=== PATIENT | male | born 1960 | race Caucasian/White ===

== ENCOUNTER → 2016-07-01 | Outpatient (CLI) | payer MEDICAID, OTHER | END | disposition home or self-care (01) | LOC: Rad HDHVI 08:34 | PROVIDERS: ATTEND Internal Medicine Cardiovascular Disease | DX: R07.89 Other chest pain (principal) | CPT/HCPCS: 93306 ==

== ENCOUNTER → 2016-07-15 | Outpatient (CLI) | payer MEDICAID ==
[~2016-07-15] VITALS: Ht 172.7 cm; Wt 93.4 kg
== END | disposition home or self-care (01) ==
LOC: Rad HDHVI 13:24
PROVIDERS: ATTEND Internal Medicine Cardiovascular Disease
DX: I10 Essential (primary) hypertension (principal); E78.00 Pure hypercholesterolemia, unspecified; R11.0 Nausea; Z82.49 Family history of ischemic heart disease and other diseases of the circulatory system; G43.809 Other migraine, not intractable, without status migrainosus
CPT/HCPCS: 93017

== ENCOUNTER → 2016-08-30 | Outpatient (CLI) | payer MEDICAID ==
[~2016-08-30] VITALS: Ht 172.7 cm; Wt 95.3 kg
[~2016-08-30] MED LIST: ALPR0.5T7 PO; DIVA500T4 PO; FLUO40CA PO; LIDO5DIS21 TOP; LORA-622 PO; METO-169 PO; OXCA600T3 PO; PREG100C PO; QUET50TA PO
[2016-08-30 16:20] LABS: Basophils # (auto) 0 uL; Basophils % (auto) 0.6 % (0.0-2.0); Eosinophils # (auto) 0.5 uL; Eosinophils % (auto) 7.5 % (0.0-7.0); Hematocrit 41.4 % (41.0-53.0); Hemoglobin 13.8 g/dL (13.5-17.5); Lymphocytes # (auto) 2.2 uL; Lymphocytes % (auto) 33.8 % (10.0-50.0); Mean Corpuscular Hemoglobin 27.2 pg (28.0-32.0); Mean Corpuscular Hgb Conc. 33.2 g/dL (32.0-36.0); Mean Corpuscular Volume 81.9 fL (80.0-100.0); Mean Platelet Volume 8.7 fL (7.4-10.4); Monocytes # (auto) 0.6 uL; Neutrophils # (auto) 3.2 uL; Neutrophils % (auto) 49.1 % (37.0-80.0); Platelet Count (auto) 308 10^3/uL (140-450); Red Cell Distribution Width 15.4 % (11.6-16.0); White Blood Cell 6.5 10^3/uL (4.4-10.8)
[2016-08-30 16:27] LABS: BUN/Creatinine Ratio 9.7; Calcium 8.8 mg/dL (8.5-10.1); Potassium 4.2 mmol/L (3.5-5.1)
[2016-08-30 16:30] LABS: INR 0.99 (0.9-1.15); Partial Thromboplastin Time 27.3 sec (22.64-33.71); Prothrombin Time 10.2 sec (9.37-12.3)
== END | disposition home or self-care (01) ==
LOC: Rad HDHVI 11:00
PROVIDERS: ATTEND Internal Medicine Cardiovascular Disease
DX: I10 Essential (primary) hypertension (principal); D64.9 Anemia, unspecified; R79.1 Abnormal coagulation profile
CPT/HCPCS: 36415; 71020; 80048; 85025; 85610; 85730; 93005; G0463

== ENCOUNTER 2016-09-02 10:03 | Day surgery (SDC) | payer MEDICAID ==
[2016-09-02] MEDS ORDERED: LIDOCAINE 2%HCL (LOCAL ANESTH.) INJ 20ML MDV ONE (10:42)
[2016-09-02] MEDS ORDERED: IOHEXOL 350 MG/ML 100ML IJ ONE (10:42)
[2016-09-02] MEDS ORDERED: MIDAZOLAM HCL 1MG/1ML-2 ML VIAL ONE (10:48)
[2016-09-02] MEDS ORDERED: fentaNYL CITRATE 100 MCG/2 ML VL ONE (10:48)
[2016-09-02] MEDS ORDERED: ANGIOMAX 250 MG VIAL IV ONE (10:48)
[2016-09-02] MEDS ORDERED: SODIUM CHL 0.9% 0 ML ONE (10:49)
[2016-09-02] MEDS ORDERED: ACETAMINOPHEN 325 MG TAB PO ONE ×2 (11:58→12:15)
== END 2016-09-02 13:45 | disposition home or self-care (01) ==
LOC: CATH 10:03
PROVIDERS: ATTEND Internal Medicine Cardiovascular Disease
DX: R94.39 Abnormal result of other cardiovascular function study (principal); I10 Essential (primary) hypertension
CPT/HCPCS: 93458; C1760; C1894; J1644; J3010; J7030; Q9967; 99152; J2250

== ENCOUNTER 2021-09-25 12:53 | Inpatient (IN) | payer OTHER, MEDICAID ==
[~2021-09-25] VITALS: Ht 172.7 cm; Wt 89.0 kg
[~2021-09-25 12:53] MED LIST changes: -METO-169 PO; +METO-289 PO
[2021-09-25] MEDS ORDERED: SODIUM CHLORIDE 0.9% 1,000 ML IV ONE ×3 (13:15→18:30)
[2021-09-25 13:47] LABS: Basophils # (auto) 0 10 ^3/uL (0-0.2); Basophils % (auto) 0.1 % (0.0-2.0); Eosinophils # (auto) 0 10 ^3/uL (0-0.8); Hematocrit 41.3 % (41.0-53.0); Hemoglobin 14.3 g/dL (13.5-17.5); Lymphocytes # (auto) 1.5 10 ^3/uL (0.4-5.4); Lymphocytes % (auto) 6.6 % (10.0-50.0); Mean Corpuscular Hemoglobin 30.5 pg (28.0-32.0); Mean Corpuscular Hgb Conc. 34.6 g/dL (32.0-36.0); Mean Corpuscular Volume 88.1 fL (80.0-100.0); Monocytes # (auto) 1.7 10 ^3/uL (0-1.3); Monocytes % (auto) 7.3 % (0.0-12.0); Neutrophils # (auto) 19.7 10 ^3/uL (1.6-8.6); Red Blood Cells 4.69 10^6/uL (4.5-5.90); Red Cell Distribution Width 13.3 % (11.8-14.3); White Blood Cell 22.9 10^3/uL (4.4-10.8)
[2021-09-25 13:50] LABS: Albumin 3.5 g/dL (3.4-5.0); Calcium 8.8 mg/dL (8.5-10.1); Lactic Acid w/Reflex 3.9 mmol/L (0.4-2.0); Potassium 3.5 mmol/L (3.5-5.1)
[2021-09-25 13:52] LABS: BUN/Creatinine Ratio 8.8
[2021-09-25 13:57] LABS: Bilirubin, Total 1.7 mg/dL (0.2-1.0); Total Protein 7.9 g/dL (6.4-8.2)
[2021-09-25] MEDS ORDERED: cefTRIAXone 1GM/50ML D5W 50 ML IV ONE (16:30)
[2021-09-25] MEDS ORDERED: ONDANSETRON HCL 4 MG/2 ML VIAL IV PRN (17:15)
[2021-09-25] MEDS ORDERED: AZITHROMYCIN 500MG/ 250ML 250 ML IV ONE (17:30)
[2021-09-25] MEDS ORDERED: ALBUTEROL SULF 2.5 MG/0.5ML(0.5%) NEB SOLN ONE (18:45)
[2021-09-25] MEDS ORDERED: IPRATROPIUM BROM 0.5 MG/2.5ML INH SOL ONE (18:45)
[2021-09-25] MEDS: ALBUTEROL SULF 2.5 MG/0.5ML(0.5%) NEB SOLN NEB PRN (18:54)
[2021-09-25] MEDS: IPRATROPIUM BROM 0.5 MG/2.5ML INH SOL NEB PRN (18:54)
[2021-09-25 19:07] VITALS: BP 119/73
[2021-09-25 19:07] LABS: Cholesterol 118 mg/dL (< 200)
[2021-09-25 19:10] LABS: HDL Cholesterol 54 mg/dL (40-59); LDL Cholesterol 57 mg/dL (< 100); Triglycerides 55 mg/dL (< 150)
[2021-09-25 20:00] VITALS: BP 107/62
[2021-09-25] MEDS: MORPHINE SULFATE 4 MG/ML SYR/VIAL IV PRN (20:13)
[2021-09-25 20:29] LABS: INR 1.27 (0.9-1.15)
[2021-09-25 22:00] VITALS: BP 107/62
[2021-09-25] MEDS: HEPARIN SODIUM (PORCINE) 5000 UNITS/ML 1ML VIAL SC SCH (22:41)
[2021-09-25] MEDS: SODIUM CHLORIDE 0.9% 1,000 ML IV SCH (23:00)
[2021-09-25 23:54] LABS: Urine Bacteria NONE SEEN /hpf (None Seen); Urine Blood TRACE /uL (Negative); Urine Hyaline Cast FEW /lpf (0 - 2); Urine Specific Gravity 1.013 (1.001-1.035); Urine WBC 1 /hpf (0 - 3)
[2021-09-26 00:02] LABS: Amphetamine Screen, Urine NEGATIVE (NEGATIVE); Barbiturate Scree,Urine NEGATIVE (NEGATIVE); Benzodiazephine Screen, Urine NEGATIVE (NEGATIVE); Cannabinoid Screen, Urine NEGATIVE (NEGATIVE); Cocaine Screen, Urine NEGATIVE (NEGATIVE); Opiate Scree,Urine NEGATIVE (NEGATIVE); Phencyclidine Screen, Urine NEGATIVE (NEGATIVE)
[2021-09-26] MEDS: MAGNESIUM SULFATE 1GM/100ML 100 ML IV SCH ×2 (00:09→01:32)
[2021-09-26] MEDS: MORPHINE SULFATE 4 MG/ML SYR/VIAL IV PRN ×3 (00:30→18:15)
[2021-09-26] MEDS: SODIUM CHLORIDE 0.9% 1,000 ML IV SCH ×2 (03:15→15:09)
[2021-09-26 05:00] VITALS: BP 100/61
[2021-09-26] MEDS: ACETAMINOPHEN 325 MG TAB PO PRN ×2 (05:35→16:38)
[2021-09-26 09:00] VITALS: BP 113/68
[2021-09-26] MEDS: cefTRIAXone 1GM/50ML D5W 50 ML IV SCH (09:45)
[2021-09-26] MEDS: METOPROLOL SUCCINATE XL 50 MG TAB PO SCH (09:45)
[2021-09-26] MEDS: HEPARIN SODIUM (PORCINE) 5000 UNITS/ML 1ML VIAL SC SCH ×2 (09:46→22:14)
[2021-09-26] MEDS: IPRATROPIUM BROM 0.5 MG/2.5ML INH SOL NEB PRN (10:16)
[2021-09-26] MEDS: ALBUTEROL SULF 2.5 MG/0.5ML(0.5%) NEB SOLN NEB PRN ×2 (10:16→21:38)
[2021-09-26] MEDS: AZITHROMYCIN 500MG/ 250ML 250 ML IV SCH (11:32)
[2021-09-26 13:00] VITALS: BP 103/64
[2021-09-26 17:00] VITALS: BP 134/89
[2021-09-26] MEDS: BUDESONIDE (INHALATION) 0.5 MG/2 ML NEB NEB SCH (21:39)
[2021-09-26 21:41] VITALS: BP 104/66
[2021-09-26] MEDS: methylPREDNISolone SOD SUCC 40 MG/ML VL IV SCH (22:12)
[2021-09-26] MEDS: TEMAZEPAM 15 MG CAP PO PRN (22:13)
[2021-09-27] MEDS: MORPHINE SULFATE 4 MG/ML SYR/VIAL IV PRN (00:42)
[2021-09-27 04:36] VITALS: BP 109/71
[2021-09-27] MEDS: SODIUM CHLORIDE 0.9% 1,000 ML IV SCH (05:51)
[2021-09-27 06:11] LABS: Basophils # (auto) 0 10 ^3/uL (0-0.2); Eosinophils # (auto) 0 10 ^3/uL (0-0.8); Hemoglobin 13.2 g/dL (13.5-17.5); Lymphocytes % (auto) 7.3 % (10.0-50.0); Mean Corpuscular Hemoglobin 31.4 pg (28.0-32.0); Mean Corpuscular Hgb Conc. 34.9 g/dL (32.0-36.0); Monocytes # (auto) 0.3 10 ^3/uL (0-1.3); Monocytes % (auto) 2.2 % (0.0-12.0); Neutrophils # (auto) 11.9 10 ^3/uL (1.6-8.6); Neutrophils % (auto) 90.5 % (37.0-80.0); Nucleated Red Blood Cells % 0.1 %; Red Blood Cells 4.22 10^6/uL (4.5-5.90); Red Cell Distribution Width 13.8 % (11.8-14.3); White Blood Cell 13.1 10^3/uL (4.4-10.8)
[2021-09-27 06:32] LABS: Potassium 4.9 mmol/L (3.5-5.1)
[2021-09-27 06:37] LABS: BUN/Creatinine Ratio 9.2; Magnesium 2.4 mg/dL (1.6-2.6)
[2021-09-27] MEDS: BUDESONIDE (INHALATION) 0.5 MG/2 ML NEB NEB SCH ×2 (07:13→21:35)
[2021-09-27] MEDS: ALBUTEROL SULF 2.5 MG/0.5ML(0.5%) NEB SOLN NEB PRN ×2 (07:13→21:35)
[2021-09-27] MEDS: IPRATROPIUM BROM 0.5 MG/2.5ML INH SOL NEB PRN ×2 (07:13→21:35)
[2021-09-27 09:00] VITALS: BP 135/75
[2021-09-27] MEDS: METOPROLOL SUCCINATE XL 50 MG TAB PO SCH (10:24)
[2021-09-27] MEDS: FAMOTIDINE 20 MG TAB PO SCH (10:24)
[2021-09-27] MEDS: cefTRIAXone 1GM/50ML D5W 50 ML IV SCH (10:24)
[2021-09-27] MEDS: methylPREDNISolone SOD SUCC 40 MG/ML VL IV SCH ×2 (10:24→21:44)
[2021-09-27] MEDS: HEPARIN SODIUM (PORCINE) 5000 UNITS/ML 1ML VIAL SC SCH ×2 (10:30→21:45)
[2021-09-27] MEDS: AZITHROMYCIN 500MG/ 250ML 250 ML IV SCH (11:24)
[2021-09-27 13:00] VITALS: BP 107/75
[2021-09-27 17:00] VITALS: BP 139/81
[2021-09-27 22:00] VITALS: BP 140/92
[2021-09-28] MEDS: ACETAMINOPHEN 325 MG TAB PO PRN (01:26)
[2021-09-28] MEDS: TEMAZEPAM 15 MG CAP PO PRN (01:26)
[2021-09-28 05:00] VITALS: BP 155/86
[2021-09-28 05:44] LABS: Basophils # (auto) 0 10 ^3/uL (0-0.2); Basophils % (auto) 0.1 % (0.0-2.0); Eosinophils # (auto) 0 10 ^3/uL (0-0.8); Hematocrit 37.7 % (41.0-53.0); Hemoglobin 13.3 g/dL (13.5-17.5); Lymphocytes # (auto) 1.1 10 ^3/uL (0.4-5.4); Lymphocytes % (auto) 9.3 % (10.0-50.0); Mean Corpuscular Hemoglobin 31.6 pg (28.0-32.0); Mean Corpuscular Hgb Conc. 35.3 g/dL (32.0-36.0); Mean Corpuscular Volume 89.4 fL (80.0-100.0); Monocytes # (auto) 0.3 10 ^3/uL (0-1.3); Monocytes % (auto) 2.7 % (0.0-12.0); Neutrophils # (auto) 10.8 10 ^3/uL (1.6-8.6); Neutrophils % (auto) 87.9 % (37.0-80.0); Red Blood Cells 4.22 10^6/uL (4.5-5.90); White Blood Cell 12.3 10^3/uL (4.4-10.8)
[2021-09-28] MEDS: methylPREDNISolone SOD SUCC 40 MG/ML VL IV SCH (08:44)
[2021-09-28] MEDS: FAMOTIDINE 20 MG TAB PO SCH (08:44)
[2021-09-28] MEDS: cefTRIAXone 1GM/50ML D5W 50 ML IV SCH (08:44)
[2021-09-28 09:00] VITALS: BP 146/90
[2021-09-28] MEDS: IPRATROPIUM BROM 0.5 MG/2.5ML INH SOL NEB PRN (09:55)
[2021-09-28] MEDS: BUDESONIDE (INHALATION) 0.5 MG/2 ML NEB NEB SCH (09:55)
[2021-09-28] MEDS: ALBUTEROL SULF 2.5 MG/0.5ML(0.5%) NEB SOLN NEB PRN (09:55)
[2021-09-28] MEDS: HEPARIN SODIUM (PORCINE) 5000 UNITS/ML 1ML VIAL SC SCH (10:00)
[2021-09-28] MEDS: METOPROLOL SUCCINATE XL 50 MG TAB PO SCH (10:37)
[2021-09-28] MEDS: AZITHROMYCIN 500MG/ 250ML 250 ML IV SCH (10:38)
[2021-09-28 13:00] VITALS: BP 147/89
[2021-09-28] MEDS ORDERED: DOXY-286 PO (14:43)
[2021-09-28] MEDS ORDERED: METO-289 PO (14:43)
[2021-09-28] MEDS ORDERED: PRED20TA2 PO (14:43)
[2021-09-28 15:36] VITALS: BP 147/89
== END 2021-09-28 17:25 | disposition hospice, home (50) | DRG 871 ==
LOC: EDUNIT# 12:53 → EDBD 12:53 → ER 12:53 → TELE 17:03 → ER 18:15 → TELE-CENTR 18:42
PROVIDERS: ADMIT Registered Nurse; ATTEND Hospitalist
DX: A41.9 Sepsis, unspecified organism (principal); J96.00 Acute respiratory failure, unspecified whether with hypoxia or hypercapnia; J18.9 Pneumonia, unspecified organism; J98.11 Atelectasis; N17.9 Acute kidney failure, unspecified; E83.42 Hypomagnesemia; E66.9 Obesity, unspecified; F41.9 Anxiety disorder, unspecified; G40.909 Epilepsy, unspecified, not intractable, without status epilepticus; I10 Essential (primary) hypertension; F32.A Depression, unspecified; K44.9 Diaphragmatic hernia without obstruction or gangrene; R55 Syncope and collapse; R79.89 Other specified abnormal findings of blood chemistry; R26.2 Difficulty in walking, not elsewhere classified; Z20.822 Contact with and (suspected) exposure to COVID-19; Z68.30 Body mass index [BMI] 30.0-30.9, adult
CPT/HCPCS: 36415; 70450; 71045; 71250; 80048; 80053; 80061; 80164; 80307; 81001; 83036; 83605; 83735; 84443; 84484; 85025; 85610; 87040; 87086; 93005; 93306; 93886; 94640; 96361; 96365; G0378; J0696; J2405